=== PATIENT | female | born 1970 | race Asian ===

== ENCOUNTER 2020-03-11 06:30 | Day surgery (SDC) | payer OTHER, SELFPAY ==
[~2020-03-11] VITALS: Ht 165.1 cm; Wt 49.9 kg
[2020-03-11] MEDS ORDERED: MEPERIDINE HCL/PF 100 MG/ML AMP ONE (06:46)
[2020-03-11] MEDS ORDERED: SIMETHICONE 40 MG/0.6 ML ML ONE (06:47)
[2020-03-11] MEDS: MIDAZOLAM HCL 5 MG/5 ML VIAL ONE ×4 (07:46→08:05)
[2020-03-11] MEDS ORDERED: ONDANSETRON HCL 4 MG/2 ML VIAL ONE (07:47)
[2020-03-11 13:26] VITALS: BP_SYST 111
== END 2020-03-11 09:20 | disposition home or self-care (01) ==
LOC: SDS 06:30 → SMU 06:30 → SDS 09:20
PROVIDERS: ATTEND Internal Medicine Gastroenterology
DX: Z12.11 Encounter for screening for malignant neoplasm of colon (principal); R10.13 Epigastric pain; K29.50 Unspecified chronic gastritis without bleeding; K64.9 Unspecified hemorrhoids; K64.4 Residual hemorrhoidal skin tags; K21.9 Gastro-esophageal reflux disease without esophagitis; Z20.828 Contact with and (suspected) exposure to other viral communicable diseases; Z79.899 Other long term (current) drug therapy
CPT/HCPCS: 36415; 43239; 45378; 87081; 88305; 88312; 88313; 99152; 99153; G0378; J2175; J2250; J2405; U0003

== ENCOUNTER 2020-06-02 11:38 | Outpatient (CLI) | payer OTHER | END 2020-06-02 20:15 | disposition home or self-care (01) | LOC: SMI 11:38 | PROVIDERS: ATTEND Family Medicine | DX: M54.5 Low back pain (principal); M43.16 Spondylolisthesis, lumbar region; M48.061 Spinal stenosis, lumbar region without neurogenic claudication | CPT/HCPCS: 72148 ==

== ENCOUNTER 2020-07-30 12:24 | Outpatient (CLI) | payer OTHER | END 2020-07-30 21:37 | disposition home or self-care (01) | LOC: SMI 12:24 | DX: M25.529 Pain in unspecified elbow (principal) ==

== ENCOUNTER 2020-08-02 06:49 | Outpatient (CLI) | payer OTHER ==
[2020-08-02 07:18] LABS: BASOPHILS # (AUTO) 0.1 K/uL (0.0-0.2); BASOPHILS % (AUTO) 1.8 % (0.0-2.0); EOSINOPHILS # (AUTO) 0.2 K/uL (0.0-0.4); EOSINOPHILS % (AUTO) 5.3 % (0.0-4.0); HEMATOCRIT 42.2 % (36-48); LYMPHOCYTES # (AUTO) 1.7 K/uL (1.0-5.5); LYMPHOCYTES % (AUTO) 36.9 % (20.5-51.5); MEAN CORPUSCULAR HEMOGLOBIN 29 pg (27-31); MEAN CORPUSCULAR HGB CONC 33 % (32-36); MEAN CORPUSCULAR VOLUME 87 fL (79.0-98.0); MONOCYTES # (AUTO) 0.4 K/uL (0.0-1.0); NEUTROPHILS # (AUTO) 2.2 K/uL (1.8-7.7); PLATELET COUNT (AUTO) 209 K/uL (130-430); RED BLOOD CELL COUNT(AUTO) 4.88 MIL/uL (4.2-6.2); RED CELL DISTRIBUTION WIDTH 13.6 % (9.0-15.0); WHITE BLOOD COUNT (AUTO) 4.5 K/uL (4.8-10.8)
[2020-08-02 07:25] LABS: BILIRUBIN,URINE NEGATIVE (NEGATIVE); CLARITY/URINE CLEAR (CLEAR); COLOR,URINE YELLOW (YELLOW); GLUCOSE,URINE NEGATIVE (NEGATIVE); KETONES,URINE NEGATIVE (NEGATIVE); LEUKOCYTE ESTERASE ,URINE TRACE (NEGATIVE); NITRITE, URINE NEGATIVE (NEGATIVE); PH,URINE 6.5 (5.0-8.0); PROTEIN URINE NEGATIVE (NEGATIVE); UROBILINOGEN,URINE 0.2 (0.2-1.0)
[2020-08-02 07:34] LABS: BLOOD, URINE TRACE (NEGATIVE)
[2020-08-02 07:41] LABS: BACTERIA,URINE RARE /HPF (None Seen); MUCUS,URINE 1+ /LPF (None Seen)
[2020-08-02 07:50] LABS: ALBUMIN 3.8 g/dL (3.4-4.8); CALCIUM 8.9 mg/dL (8.4-11.0); CREATININE 0.69 mg/dL (0.55-1.30); POTASSIUM 3.8 mmol/L (3.5-5.1); THYROID STIMULATING HORMONE 0.92 uIu/mL (0.36-3.74); TOTAL BILIRUBIN 0.7 mg/dL (0.0-1.0)
== END 2020-08-02 20:33 | disposition home or self-care (01) ==
LOC: SLB 06:49
PROVIDERS: ATTEND Family Medicine
DX: Z00.00 Encounter for general adult medical examination without abnormal findings (principal); R94.6 Abnormal results of thyroid function studies
CPT/HCPCS: 36415; 80053; 80061; 81000; 83036; 84443; 85025